=== PATIENT | female | born 1980 | race Caucasian/White ===

== ENCOUNTER → 2020-07-14 07:33 | Outpatient (CLI) | payer OTHER, SELFPAY ==
--- NOTE | ~2020-07-14 | XR_ITS ---
EXAMINATION: XR ribs BI 3V w CXR 2V EXAM DATE: 07/14/2020 08:23 INDICATION: Left, mid to lower posterior rib pain intermittently for 8 years. Pain started during cou gh episode. TECHNIQUE: Frontal projection of the upper left ribs, frontal projection of the lower left ribs, obli que projection of the left ribs. Frontal projection of the upper right ribs, frontal projection of t he lower right ribs, oblique projection of the right ribs, frontal and lateral chest x-ray(s) for int erpretation. There is no prior study for comparison. FINDINGS: There are no osteoblastic or osteolytic lesions identified. There are no displaced acute ri b fractures identified. No confluent consolidation, pneumothorax or pleural effusion suspected. No co nfluent consolidation, pneumothorax or pleural effusion suspected. Cardiomediastinal silhouette is no rmal. IMPRESSION: Unremarkable rib, chest x-ray examination. Reviewed, dictated and finalized at location A.
== END ==
PROVIDERS: PCP Family Medicine; Visit Provider Nurse Practitioner Family
DX: M54.9 Dorsalgia, unspecified (principal); R07.81 Pleurodynia
CPT/HCPCS: 71046; 71110

== ENCOUNTER 2020-07-20 07:02 | Outpatient (CLI) | payer OTHER, SELFPAY ==
--- NOTE | ~2020-07-20 | XR_ITS ---
EXAMINATION: XR thoracic spine min 4V EXAM DATE: 07/20/2020 07:23 INDICATION: Dorsalgia. TECHNIQUE: Frontal and lateral projections of the thoracic spine as well as lateral swimmers projecti on of the upper thoracic spine for interpretation. Bilateral oblique projections of the thoracic spin e. There is no prior study for comparison. FINDINGS: Minimal mid and lower thoracic disc disease. Vertebral body heights are well-maintained. N o endplate erosive change. Minimal mid thoracic levocurvature. Paraspinal soft tissue is unremarkable . IMPRESSION: Minimal thoracic spondylosis and curvature. Reviewed, dictated and finalized at location B.
== END 2020-07-20 07:03 | disposition home or self-care (01) ==
LOC: ANHIMG 07:04
PROVIDERS: PCP Family Medicine; Visit Provider Nurse Practitioner Family
DX: M47.894 Other spondylosis, thoracic region (principal)
CPT/HCPCS: 72074

== ENCOUNTER 2020-09-09 15:00 | Outpatient (RCR) | payer OTHER, SELFPAY ==
--- NOTE | 2020-08-04 16:01 | PTOPEVAL ---
PHYSICAL THERAPY EVALUATION AND PLAN OF CARE 08-04-2020 Thank you for referring Monalisa Ceron to [facility].? She is scheduled to be seen for therapy? 1 x/week for 5 weeks. Please review, sign, date and return this plan of care IDANIA. I agree with and certify that the following plan of care is medically necessary. Referring Physician Date Attending Provider: John Solorzano MD *PT Outpatient Evaluation Document 08/04/20 14:50 [facility] (Rec: 08/04/20 16:01 MADISON [email or web address]) Outpatient Past Medical History Past Medical History Source of Past Medical History Patient Neurological History Hx Neurological Disorders No Significant History Cardiovascular History Hx Other Cardiac Disorders Yes: history of heart skipping beats Respiratory History Hx Respiratory Disorders No Significant History Gastrointestinal History Hx Appendectomy Yes: March 2020 Genitourinary History Hx Genitourinary Disorders No Significant History Musculoskeletal History Hx Back Pain Yes: 9 yr history- since -bent forward& coughed-pop pain Hx Other Musculoskeletal Disorders Yes: neck pain few yr ago- went to chiropractor for Endocrine History Hx Endocrine Disorders No Significant History HEENT History Hx HEENT Disorders No Significant History Evaluation Information Problem Diagnosis back pain Onset May Subjective Information 12 year old son, tried to pick Query Text:As Reported By Patient/ her up, back seized up and Family pain since then- some better then would get worse; when standing, turned/twisted back and onset instant pain few weeks ago; in the past, was back was always better in few days Diagnostic Tests X-Rays For This Problem Yes: thoracic spine:min spondylosis and curvature Previous Treatments Previous Treatments For This Problem no previous PT for back pain Prior Level of Function Activity Level (Last 3 Months) 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
--- NOTE | 2020-08-25 18:04 | PCPTNOTE ---
Patient did not show up for scheduled appointment this date. Called and left voicemail reminding Pt of upcoming appointment on 09/01/2020.
--- NOTE | 2020-09-09 15:22 | PTOPEVAL ---
PHYSICAL THERAPY DISCHARGE 09-09-2020 Refer to the clinical summary below. The PT goals were achieved, therefore, Mrs. Ceron will be discharged from PT at this time. Thank you for referring Monalisa Ceron to [facility].? Please review, sign, date and return this discharge IDANIA. I agree with and certify that the following plan of care is medically necessary. Referring Physician Date Attending Provider: John Solorzano MD *PT Outpatient discharge Document 09/09/20 14:59 MADISON (Rec: 09/09/20 15:22 MADISON [id number]) Subjective Information Monalisa reports: doing better- Query Text:As Reported By Patient/ have not had pain in few week; Family no issues with falling asleep; some tightness in neck, but exercises work it out; doing exercises and they help; agree to discharge from PT services and continue with exercises; Pain Assessment Timing of Pain Assessment Timing of Pain Assessment Assessment Self Report Self Report Pain Level 0 Pain Score Pain Score 0: Self Report Cervical and Lumbar ROM Lumbar ROM Lumbar Comments standing trunk rotation to R no increase pain 3reps; standing and reaching up R and L UE no pain Upper Extremity Muscle Strength Testing General Upper Extremity Strength Gross Upper Extremity Strength Comments prone scapular adduction with R and L UE: at side, 90' and overhead x 20 reps each; standing: shoulder abduction/ wall angels x 20 reps supine stretch over exercise ball:thoracic and pec stretch; sit on ball: march, arm/leg lift and posture/stabilization x 10 reps each; stretch with lateral trunk R/L and rotation trunk R/L; few reminders for posture and scapular stabilization with exercise Posture Posture Standing Position Posture Evaluation View Posterior Head/C-Spine Posture Neutral Position Thorax Posture Neutral Shoulder Posture Neutral Arm Posture (L) Neutral,(R) Neutral Palpation Assessment Palpation Palpation no tenderness with palpation over R and L thoracic or cervical areas; Rehab Teaching
== END 2020-09-10 09:32 | disposition home or self-care (01) ==
LOC: ANHPT 15:00
PROVIDERS: PCP Family Medicine; Visit Provider Family Medicine
DX: M54.9 Dorsalgia, unspecified (principal)
CPT/HCPCS: 97035; 97110; 97140; 97161

== ENCOUNTER 2024-06-04 09:20 | Emergency (ER) | payer OTHER, SELFPAY ==
[2024-06-04 09:32] VITALS: BP 153/107; PULSE 85; RESP 16; TEMP 36.8; O2SAT 97
--- NOTE | 2024-06-04 09:49 | ED.DENTAL ---
HPI - Dental/Oral General Chief complaint: Dental/Oral Stated complaint: Dental Pain Time Seen by Provider: 06/04/24 09:23 Source: patient Mode of arrival: ambulatory Limitations: no limitations History of Present Illness HPI Narrative: Monalisa is a 44-year-old female patient presenting to the clinic today with complaints right upper dental abscess that started approximately 3 days ago. She reports is increase in pain. Has been taking Tylenol/Motrin/in Orajel. Blood pressure is elevated in the clinic today. No history of high blood pressure. Patient reports her pain is 8/10 currently. Related Data Home Medications Medication Instructions Recorded Confirmed meloxicam submicronized 10 mg 10 mg PO DAILY 01/08/23 06/04/24 capsule Allergies Allergy/AdvReac Type Severity Reaction Status Date / Time No Known Allergies Allergy Verified 06/04/24 09:24 Review of Systems Review of Systems: Pertinent positives per HPI. Patient denies any fever, chills, rash, headache, visual changes, dizziness, cough, runny nose, sore throat, shortness of breath, chest pain, palpitations, nausea, vomiting, diarrhea, constipation, abdominal pain, or any urinary issues. [facility] Past Medical History Medical History BMI 28.0-28.9,adult BMI 29.0-29.9,adult History of appendicitis Screening, lipid Skipped heart beats Well adult exam Family History Family History Father Hypertension Mother Osteopenia Sibling Rheumatoid arthritis Social History Social History Smoking status: Never smoker Second hand tobacco smoke exposure: No Alcohol intake: current Substance use: never Substance use type: does not use Lack of Transportation: No Lack of Food: Never True Current Housing: I Have Housing Concerned About Future Housing: No Difficulty Paying Gas/Electric Bills: No Difficulty Paying for Meds: No Currently Unemployed: No Education: Master's Degree or Higher Living arrangements: with family Occupation/Education: occupation Additional occupation/education comments: [employer] Gender identity (if verbalized by the patient): Female Comments At the time of my signature, I reviewed and agree with the nursing past medical, surgical, social, and family history. There is no relevant family history pertinent to the patient complaint. Exam Narrative: General: Well-developed, well nourished, in no apparent distress Head: Normocephalic, atraumatic Eyes: Pupils equally round and reactive to light bilaterally, EOM intact, sclera and conjunctive clear, no discharge, lids normal Ears: TMs intact and clear, ear canals clear, no drainage, grossly hearing normal. Nose: Nares patent, no discharge, no inflammation, no sinus tenderness. Mouth: Oropharynx without lesions or masses, poor dentition, MMM. Gum swelling with mild fluctuant abscess to the right upper heart palate and around the gums, tender to palpation over teeth number 2 and 3 Neck: Supple, trachea midline, no enlargement of anterior or posterior cervical nodes, no thyroid masses or goiter palpable. Cardio: Regular rate and rhythm, s1 and s2 normal, no murmur appreciated. Resp: Clear to auscultation bilaterally anteriorly and posteriorly, no rhonchi, rales, wheezing or rubs Course Course Emergency Course: Portions of this record may have been created with voice recognition software. Level of Care: Express Care Visit Vital Signs Vital signs: Vital Signs Temperature 36.8 C 06/04/24 09:32 Pulse Rate 85 06/04/24 09:32 Respiratory Rate 16 06/04/24 09:32 Blood Pressure 153/107 H 06/04/24 09:32 Pulse Oximetry 97 06/04/24 09:32 Oxygen Delivery Room Air 06/04/24 09:32 Temperature 36.8 C 06/04/24 09:32 Pulse Rate 85 06/04/24 09:32
== END 2024-06-04 09:55 | disposition home or self-care (01) ==
PROVIDERS: Emergency Provider Nurse Practitioner Family; PCP Family Medicine
DX: K04.7 Periapical abscess without sinus (principal)
CPT/HCPCS: 99213; G0463

== ENCOUNTER 2025-04-14 03:19 | Day surgery (SDC) | payer OTHER, SELFPAY ==
[2025-04-01 11:36] VITALS: BMI 29.4
--- OUTSIDE RECORDS SUMMARY | 2025-04-14 03:22 | XMS_ITS | Encounter Summary ---
Author Organization [employer] [facility] Address 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
--- OUTSIDE RECORDS SUMMARY | 2025-04-14 03:22 | XMS_ITS | Clinical Summary ---
Author Organization [facility] Address [address] [place] [phone] Phone Care Team Providers Care Broadcast Field Supervisor Name Role Phone Unavailable Primary Care Provider Unavailabl e Allergies No known active allergies Medications PNV CMB#21/IRON/FOLI C ACID ( COMPLETE ORAL) Take by mouth. Active Active Problems Problem Noted Date Diagnosed Date Labor, gbs-, AB+, arom 0445 01/10/2014 11.2 08/30/2011 Resolved Problems Problem Noted Date Diagnosed Date Resolved Date eil(pit), [id number], AB+, gbs- 08/30/2011 08/30/2011 Immunizations Immunization Administration Dates Next Due (ADACEL/BOOSTRIX)(10 YR UP) TDAP VACCINE, 0.5ML, IM 01/12/2014,08/31/2011 Influenza Vaccine Split 3+ Yrs PF IM 08/31/2011 Influenza Vaccine Split PF ID 01/10/2014 Family History Medical History Relation Name Comments Healthy Father Healthy Mother Healthy Son Relation Name Status Comments Father Alive Mother Alive Son Alive Social History Tobacco Use Types Packs/Day Years Used Date Smoking Tobacco: Never Smokeless Tobacco: Never Alcohol Use Standard Drinks/Week Comments No 0 (1 standard drink = 0.6 oz pur e alcohol) Comments Unknown Sex and Gender Information Value Date Recorded Sex Assigned at Not on file 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 Gender Identity Not on file Sexual Orientation Not on file Last Filed Vital Signs Vital Sign Reading Time Taken Comments Blood Pressure 110/70 01/12/2014 9:00 AM CDT Pulse 76 01/12/2014 9:00 AM CDT Temperature 36.9 C (98.4 F) 01/12/2014 9:00 AM CDT Respiratory Rate 18 01/12/2014 9:00 AM CDT Oxygen Saturation 99% 01/10/2014 4:33 AM CDT Inhaled Oxygen Concentration - - Weight 72.1 kg (159 lb) 01/10/2014 2:39 AM CDT Height 157.5 cm (5' 2) 01/10/2014 2:39 AM CDT Body Mass Index 29.08 01/10/2014 2:39 AM CDT Plan of Treatment Health Maintenance Due Date Last Done Comments HEPATITIS B VACCINES (1 of 3 - 19+ 3-dose series) 1998 HPV/Cotest (21-29) 2000 CERVICAL CANCER SCREENING 2009 HPV/Cotest (30-65) 2009 PAP SMEAR 2009 BREAST CANCER SCREENING 2019 DTAP/TDAP/TD VACCINES (3 - T d or Tdap) 01/13/2024 01/12/2014, 08/31/2011 COLORECTAL SCREENING 2024 Colorectal Cancer Screening 2024 FIT-DNA Q 3 years 2024 FIT/FOBT Q 1 year 2024 Flex Sig/CT Colonography Q 5 years 2024 INFLUENZA VACCINE (#1) 2024 4, 08/31/2011 HPV VACCINES Aged Out No longer eligi ble based on patient's age to complete this topic Advance Directives For more information, please contact: [phone] * Full Code (Latest Code Status on File) Date Activated Date Inactivated Comments 01/10/2014 10:06 AM 01/12/2014 12:47 PM * Full Code Date Activated Date Inactivated Comments 01/10/2014 3:17 AM 01/10/2014 8:38 AM * Full Code Date Activated Date Inactivated Comments 08/30/2011 3:31 PM 09/01/2011 12:13 PM * Full Code Date Activated Date Inactivated Comments 08/30/2011 12:49 AM 08/30/2011 3:31 PM * Full Code Date Activated Date Inactivated Comments 08/30/2011 12:48 AM 08/30/2011 12:49 AM
--- OUTSIDE RECORDS SUMMARY | 2025-04-14 03:22 | XMS_ITS | Data Portability ---
Author Organization [facility] Address [address] [place] [address] [place] [address] Care Team Providers Care Supervisor Endless Track Vehicle Name Role Phone ED CORNELL Primary Care Provider [phone] Assessment No assessment recorded. Plan of Treatment Reminders Order Date Submit Date Provider Last Modified By Organization Details Last Modified Time Details Appointments None recorded. Lab test, urine 2021 022 [email or web address] [facility], [address], [place], [address], 15:27:36 Referral None recorded. Procedures None recorded. Surgeries hysteroscop y, with endometrial ablation (SURG) 2021 022 [email or web address] Kevin Cochran MD, [address], [place], [address], 11:06:10 Imaging US, pelvis 2021 022 [email or web address] [facility], [address], [place], [address], 21:49:50 US, transvagina l 2021 022 [email or web address] [facility], [address], [place], [address], 21:49:50 Medication Orders Pembina 10 mg-325 mg tablet 2021 022 [email or web address] [id number], [address], [place], [id number], 10:42:34 Xanax 0.5 mg tablet 2021 [email or web address] [id number], [address], [place], [phone], 10:42:41 Zofran 8 mg tablet 2021 [email or web address] [facility], [address], [place], [id number], 10:42:39 Patient TargetsNo targets recorded. Patient InstructionsNo instructions recorded. Reason for Referral None Reported. Results Created Date Observation Date Name Description Value Unit Range Abnormal Flag Note LastModifiedBy Organization Detail LastModifiedTime 07/12/20 22 07/12/2022 SURGI MARYLU PATHO LOGY surgical pathology SEE RESULT S BELOW CASE REPOR T: Surgi marylu Patho logy Repor t Case: [id number] Autho akanksha moreno Provi alma: Lara Cochran MD Colle cted: 07/12 1815 Order ing Locat ion: [place] [facility] Recei mai: 07/13 0141 Patho logis t: Tristin Dejesus MD Speci men: Cervi x, Cervi marylu biops y FINAL DIAGN OSIS: Cervi x, biops y: -Ecto cervi marylu tissu e with no dyspl thomas. Elect lupe mcleod by Tristin Dejesus MD on 2021 at 2:24 PM ----- ----- ----- ----- ----- ----- ----- ----- ----- ----- ----- ----- ----- ----- ----- ----- ----- ---- CLINI MARYLU INFOR MATIO N: N88.9 MICRO SCOPI C DESCR IPTIO N: A micro scopi c exami natio n was perfo rmed. GROSS DESCR IPTIO N: A. Cervi x. The speci men is label ed with the patie nt's name, demog raphi cs and cervi marylu BX. Recei mai in forma reyna is a 0.7 cm fragm ent of white -vogel tissu e. The entir e speci men is submi tted in one casse tte. Gross ed by Dianna Khan on Not Available [facility] [address] [place], [address], 07/13/2022 15:26:31 07/12/20 22 07/12/2022 pregn varun test, urine HCG negati ve Not Available [facility] [address], [place], [address], 07/12/2022 15:27:22 05/23/20 22 05/23/2022 US, pelvi s No observ ation record ed. [email or web address] [facility] [address], [place], [address], 05/23/2022 10:56:49 05/23/20 22 05/23/2022 US, trans vagin al No observ ation record ed. [email or web address] [facility] [address], [place], [address], 05/23/2022 10:56:59 05/23/20 22 05/23/2022 US, pelvi s No observ ation record ed. ana [address], [facility], [place], [address], 05/25/2022 14:13:08 07/20/20 22 07/20/2022 US, pelvi s No observ ation record ed. [email or web address] [facility] [address], [place], [address], 07/20/2022 18:01:20 07/20/20 22 07/20/2022 US, trans vagin al No observ ation record ed. [email or web address] [facility] [address], [place], [address], 07/20/2022 18:01:28 07/20/20 22 07/20/2022 US, pelvi s No observ ation record ed. [email or web address] [address], [place], [address], 07/20/2022 20:52:38 Result Notes None recorded. Problems Name Problem SNOMED Code Status Onset Date Resolution Date Notes Provider Name and Address Organization Details Recorded Time Menorrhagia 554551762 Active 2021 Kevin Cochran MD [address], [place], [address], [facility] 2 13:34:32 Cyst of ovary 26303835 Active 2021 Kevin Cochran MD [address], [place], [address], [facility] 2 13:34:34 Lesion of cervix 108930319 Active 2021 Kevin Cochran MD [address], [place], [address], [facility] 2 13:34:36 Mixed anxiety and depressive disorder 571157543 Active 2021 Kevin Cochran MD [address], [place], [address], [facility] 13:34:40 Problem Notes None recorded. Procedures Surgical History Date Name Laterality Status Provider Name and Address Organization Details Recorded Time 07/16/20 23 I&D completed Kevin Cochran MD [address], [place], [address], [facility] 07/16/2023 11:30:45 07/12/20 22 Endometrial Ablation with Hysteroscopy completed Kevin Cochran MD [address], [place], [address], [facility] 07/15/2022 15:03:19 05/17/20 22 Date of Last Pap Smear completed Harika Edmonds [facility] 05/29/2022 12:40:35 05/04/20 21 I&D completed Mercedes Perez CNM [address], [place], [address], [facility] 05/04/2021 14:36:07 02/18/20 21 I&D completed Shakira Tan [facility] 02/17/2021 16:52:36 10/29/19 20 Appendectomy completed Maggie Read [facility] 05/04/2021 14:24:08 Imaging Results None recorded. Procedure Notes None recorded. Medical Equipment None Reported. Allergies No known drug allergies Medications Name Sig Start Date Stop Date Status Note LastModified by Organization Details LastModified Time tizanidine 2 mg tablet TAKE 1 TABLET BY MOUTH EVERY NIGHT AT BEDTIME NEEDED FOR MUSCLE SPASMS 05/17 completed Not Available Not Available Not Available hydrocodone 5 mg-acetamin ophen 325 mg tablet TK 1 TO 2 TS PO Q 4 H PRN P 01/31 completed Not Available Not Available Not Available ondansetron HCl 8 mg tablet TAKE 1 TABLET BY MOUTH 2 HOURS BEFORE THE PROCEDURE 07/16 completed Not Available Not Available Not Available prednisone 5 mg tablet TAKE 1-3 TABLETS BY MOUTH EVERY DAY FOR IMMEDIATE ARTHRITIS CONTROL. USE LOWEST DOSE NEEDED AND STOP WHEN BETTER 05/17 completed Not Available Not Available Not Available sulfamethox azole 800 mg-trimetho prim 160 mg tablet TAKE 1 TABLET BY MOUTH EVERY 12 HOURS 02/17 completed Not Available Not Available Not Available hydrocodone 10 mg-acetamin ophen 325 mg tablet Take 1 tablet 2 hours before the procedure . 07/16 completed Not Available Not Available Not Available tramadol 50 mg tablet TAKE 1 TABLET BY MOUTH FOUR TIMES DAILY WITH OTC TYLENOL NEEDED FOR PAIN 05/17 completed Not Available Not Available Not Available meloxicam 7.5 mg tablet TAKE 2 TABLETS BY MOUTH FOR 1 DAY THEN TAKE 1 TABLET BY MOUTH DAILY FOR PAIN active Not Available Not Available No t Available alprazolam 0.5 mg tablet TAKE ONE TABLET BY MOUTH 2 HOURS BEFORE THE PROCEDURE 07/16 completed Not Available Not Available Not Available Vitamin D2 1,250 mcg (50,000 unit) capsule Take 1 capsule every week by oral route. 05/17 completed Not Available Not Available Not Available escitalopra m 10 mg tablet TAKE 1 TABLET BY MOUTH EVERY DAY active Not Available Not Available No t Available Vitamin D3 125 mcg (5,000 unit) tablet Take 1 tablet every day by oral route. active Not Available Not Available No t Available Slynd 4 mg (28) tablet TAKE 1 TABLET BY MOUTH EVERY DAY 05/17 completed Not Available Not Available Not Available Vitals Date Recorded Body height Body mass index (BMI) Body weight Systolic blood pressure Diastolic blood pressure Provider Name and Address Organization Details Last Updated DateTime 06/21/2022 157.48 cm 28.5 kg/m2 05334.41 g 93 mm[Hg] 71 mm[Hg] [facility] 2 18:30:56 Date Recorded Body height Body mass index (BMI) Body weight Systolic blood pressure Diastolic blood pressure Provider Name and Address Organization Details Last Updated DateTime 07/12/2022 157.48 cm 28.2 kg/m2 97232.22 g 118 mm[Hg] 80 mm[Hg] [facility] 2 15:00:03 Date Recorded Body height Body mass index (BMI) Body weight Systolic blood pressure Diastolic blood pressure Systolic blood pressure Diastolic blood pressure Provider Name and Address Organization Details Last Updated DateTime 3 157.48 cm 29.3 kg/m2 46170.7 8 g 153 mm[Hg] 101 mm[Hg] 140 mm[Hg] 100 mm[Hg] Harika Edmonds [facility] 3 11:30:48 Date Recorded Body height Body mass index (BMI) Body weight Systolic blood pressure Diastolic blood pressure Systolic blood pressure Diastolic blood pressure Provider Name and Address Organization Details Last Updated DateTime 2 157.48 cm 28.5 kg/m2 34353.4 1 g 142 mm[Hg] 100 mm[Hg] 153 mm[Hg] 90 mm[Hg] Harika Edmonds [facility] 2 17:39:48 Social History Question Answer Notes LastModified by Organizat ion Details LastModified Time Tobacco Smoking Status Never Smoker Mariana Up [email or web address], [facility] 07/12/2022 14:36:33 Do You Have An Advance Directive? No [email or web address] Information n ot available 01/31/2021 How Many Years Have You Consumed Alcohol? 20 [email or web address] Information not available 01/31/2021 Are You Blind Or Do You Have Difficulty Seeing? No [email or web address] Information n ot available 01/31/2021 How Much Tobacco Do You Chew? None [email or web address] Information not available 01/31/2021 In The 14 Days Before Symptom Onset, Have You Had Close Contact With A Laboratory-confirm ed COVID-19 While That Case Was Ill? No [email or web address] Information n ot available 01/31/2021 In The 14 Days Before Symptom Onset, Have You Had Close Contact With A Person Who Is Under Investigation For COVID-19 While That Person Was Ill? No [email or web address] Information not available 01/31/2021 Have You Been To An Area Known To Be High Risk For COVID-19? No [email or web address] Information not available 01/31/2021 Are You Deaf Or Do You Have Serious Difficulty Hearing? No [email or web address] Information not available 01/31/2021 What Type Of Diet Are You Following? REGULAR [email or web address] Information n ot available 01/31/2021 What Is The Highest Grade Or Level Of School You Have Completed Or The Highest Degree You Have Received? [id number] [email or web address] Information not available 01/31/2021 Are There Any Guns Present In Your Home? Yes [email or web address] Information not available 01/31/2021 Do You Use Protection During Sex? No [email or web address] Information not available 01/31/2021 Do You Use Your Seat Belt Or Car Seat Routinely? Yes Information not available 01/31/2021 Do You Have Smoke And Carbon Monoxide Detectors In Your Home? Yes [email or web address] Information not available 01/31/2021 How Much Tobacco Do You Smoke? No [email or web address] Information not available 01/31/2021 Do You Use Sunscreen Routinely? Yes [email or web address] Information not available 01/31/2021 Have You Used IV Drugs? No [email or web address] Information not available 01/31/2021 Do You Have Difficulty Walking Or Climbing Stairs? No [email or web address] Information not available 07/12/2022 Sex: Unknown Functional Status Question Answer Note LastModified by Organizat ion Details LastModified Time Do you use any illicit or recreational drugs? No [email or web address] Information not available 01/31/2021 What is your level of alcohol consumption? Occasional [email or web address] Information not available 01/31/2021 Are you able to walk? YESWOREST [email or web address] Information not available 01/31/2021 Are you able to care for yourself? 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 No [email or web address] Information not available 07/12/2022 What is your exercise level? Moderate [email or web address] Information not available 01/31/2021 Mental Status Question Answer Note LastModified by Organization D etails LastModified Time Do you feel stressed (tense, restless, nervous, or anxious, or unable to sleep at night)? [id number] [email or web address] Information not available 01/31/2021 Family History Relationship Description Onset Age of this Age Resolved Age Notes LastModified by Organization Details LastModified Time Father Hypertensive disorder [email or web address] Not available 2021 15:00:17 Father Hypertensive disorder [email or web address] Not available 2021 15:00:17 Maternal Grandfather Heart disease [email or web address] Not available 09/14/ 2022 15:00:17 Maternal Grandfather Heart disease [email or web address] Not available 2021 15:00:17 Medical History Condition Response Other N Blood Transfusion N Dermatologic Disorders N Gestational Diabetes N Anxiety Disorder N Autoimmune disease N Arthritis N Polyps N Infertility N Acid Reflux (GERD) N Cancer N Varicosities N Stroke N Neurologic/Epilepsy N Fibromyalgia N Headaches N Kidney Disease N Heart Problems N Kidney or Bladder Problems N Eating Disorder N Art (IVF or FET) N Hepatitis/Liver Disease N No Past Medical History N Urinary Tract Infection N Asthma N Trauma/Violence N Thrombophilias N Allergies (Food, seasonal, environmental ) N Breast Cancer N Drug/Latex Allergies/Reactions N Lung Disease N Defects or Inherited Disease N Breast Problem N Hematologic disorders N Anesthesia Complications N History of STI N Deep Vein Thrombosis N Polycystic ovary syndrome N History of abnormal pap N Endometriosis N High Cholesterol N Thyroid Problems N GI Problems N Anemia N Psychiatric Illness N Ovarian Cancer N Diabetes N Pulmonary (TB, Asthma) N Eczema N Abuse/Domestic Violence N Depression/ depression N Heart Disease N Pre-Eclampsia N Hypertension N Osteoporosis N Gynecological History Statement/Question Response Abnormal Pap N Date of Last Mammogram Flow Heavy Date of LMP 05/05/2022 On BCP's at Conception? N N Was last menstrual period normal N STIs/STDs N HPV Vaccine N Duration of Flow (days) 4 Current Control Method BCPs Age at First Child 28 Frequency of Cycle (Q days) 27 Sexually Active? Y Age of first menstrual cycle 12 Date of Last Pap Smear 05/17/2022 Sexual Problems? N LMP Approximate N Obstetrics History GPAL:G 3 P 3 0 0 3 Type Value Full Term 3 Living 3 Total 3 Past Encounters Encounter ID Performer Location Encounter Start Date Encounter Closed Date Diagnosis/Indication Diagnosis SNOMED-CT Code Diagnosis ICD10 Code Diagnosis Note [id number] Shakira Tan CNM [facility] [address] [address] 01/31/2021 09:18:49 01/31/2021 10:43:02 Cyst of vulva 12163875 N90.7 Warm compress 3-4x daily. Bactrim x 7 days. RTC in 1-2 weeks to evaluate. [id number] Shakira Tan CNM [facility] [address] [address] 02/17/2021 16:00:34 02/18/2021 16:02:35 Cyst of vulva 14195934 N90.7 I&D aftercare instructio ns. If any pain, redness, fever, s/s of infection, or concerns she will call for follow up. If resolution of symptoms will follow up at [id number] [facility] [address],[place] [address] 03/14/2021 16:41:21 2021 21:38:19 Cyst of vulva 32024462 N90.7 Site completely healed. Pt will let us know if any return of symptoms. [id number] [facility] [address],[place] [address] 03/31/2021 09:50:38 04/03/2021 23:01:25 Gynecologic examination 50141277 Z01.419 Suggested Calcium with Vitamin D 1200-1500m g daily. Patient advised to get an annual flu shot in the fall and she could obtain at [facility] or [facility]. Also to obtain TDap vaccinatio n if you have not had one in the last 10 years. Recommend yearly mammograms . Encouraged monthly self breast exams. Encourage safe sexual practices, to use condoms and limit partners if not already in a monogamous relationsh ip. Engage in daily exercise of low impact aerobic exercise 45-60 minutes 4-5 times weekly. Avoid tobacco and illicit drugs as well as using moderation with alcohol intake less than 1-2 8 oz beverages daily. This lifestyle behavior pattern will lead to less health conditions and longer life span. If BMI greater than 25 weight watchers or dietary consult advised. All questions have been answered. Patient appears to understand informatio n, but if you have any questions please call or respond to this email. Dysmenorrhea 773290949 N 94.6 Discussed options that could help with cramping and possibly decrease flow. Pt is not a great candidate for estrogen containing control. Discussed the use of slynd and pt would like to try. RTC in [id number] [facility] [address],[facility] [place] [address] 05/04/2021 13:58:45 05/04/2021 15:07:20 Lesion of vulva 651657135 N90.89 [id number] Stephanie HumblestephanyTAYLOR [facility] [address] [address] 05/17/2022 09:16:49 05/17/2022 14:23:50 Screening for malignant neoplasm of breast 550195043 Z12.39 Gynecologi c examination 40109069 Z01.419 Take Calcium with Vitamin D 1200mg daily if not receiving in daily diet. It is strongly advised to have an annual flu shot and up can obtain at most pharmacies . If you have not had a TDap shot in the last 10 years you should obtain one as well. Discussed with patient & provided with informatio n regarding Gardisil vaccine to prevent the 4 strains for HPV that cause cervical cancer if under age 26. Encourage safe sexual practices, to use condoms and limit partners if not already in a monogamous relationsh ip. Do monthly self breast exams. Have mammogram yearly or every other year depending on family history. BRCA testing is now available for patients with strong genetic history of female cancer. If interested contact the office. Engage in daily exercise of low impact aerobic exercise 45-60 minutes 4-5 times weekly. Avoid tobacco and illicit drugs as well as using moderation with alcohol intake less than 1-2 8 oz beverages daily. This lifestyle behavior pattern will lead to less health conditions and longer life span. If BMI greater than 25 weight watchers or dietary consult advised. Patient received above instructio ns, and questions have been answered. If you have any questions please call or respond to this email. Patient was made aware of the patient portal and may obtain a paper copy of today's plan if desired.WW EMedical hx : MTHFR, arthritisP eriods have become heavier over the last 2-3 years. Lasting 5 days, changing tampons every 1 hour or faster on days 1-2. 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 We discussed IUD, not interested at this time. Would like possible surgical management .We agreed to labs and pelvic u/s for further evaluation . F/u u/s appointmen t with Dr. Cochran.Jose moreno negative mood changes, crying spells 1-3 x per week, feeling overwhelme d. No OLESYA. We discussed options of medication therapy, she would like to hold off on this for now. Encouraged therapy, handout given to patient on local counseling options. Can call the office if she changes her mind and would like to trial zoloft.To go to the ED with any OLESYA, patient agreesOn cervical exam, at 12 o'clock, small lesion noted anterior to the cervical opening. Possible polyp vs nabothian cyst vs ?. Will have MD evaluate cervix at f/u appointmen t for further evaluation .Pap done todaySTI testing declinedMa mmogram order givenSched ule annual visit with PCP encouraged RTC for u/s and MD consult Time spent in visit is a total of 30 mins with at least 50% of visit consisting of counseling and review of plan of care. Abnormal u terine bleeding 4923034418 9100 N93.9 Lesion of cervix 4535607 01 N88.9 [id number] Kevin Cochran MD [facility] [address],[facility] [place] [address] 05/23/2022 09:52:49 05/23/2022 10:41:36 Menorrhagia 870975343 N92.0 [id number] Kevin Cochran MD [facility] [address] [address] 05/29/2022 12:04:05 05/29/2022 13:40:48 Mixed anxiety and depressive disorder 162364397 F41.8 Menorrhagia 410604890 N9 2.0 This patient is a 42-year-ol d female presents for heavy vaginal bleeding. She has longstandi ng very heavy bleeding. Her menses are regular. However, they require double protection . Patient has accidents, getting blood on her bedding and clothing. Is affected work. She changes a pad or tampon every hour. She leaks blood around the pad and tampon. This bleeding has a profound impact on her quality of life and her activities of daily living. we discussed treatment options. We agreed to perform endometria l ablation. We will move forward with getting that approved and scheduled. patient and I discussed ovarian cyst. We spent time looking at images. We talked about the etiology, natural history, treatment of ovarian cyst. Patient reports symptoms of depression . She reports sadness and crying tears feelings of worthlessn ess. She has difficulty concentrat ing. She is irritable. This is been going on for close to a year. She denies any problems with her diet or sleep. She denies any thoughts of suicide or any suicidal plan. She is starting with a counselor. We agreed to treat her symptoms with Lexapro, 10 mg. we spent more than 40 minutes face-to-fa ce. More than 50% was counseling . Cyst of ovary 52326321 N 83.209 Lesion of cervix 3156780 01 N88.9 [id number] Kevin Cochran MD [facility] [address] [address] 06/21/2022 18:22:27 06/22/2022 15:02:11 Menorrhagia 429534348 N92.0 This patient is a 42-year-ol d female who presents for follow-up for mood concerns. She was treated with Lexapro. She is doing much better. She received 10 mg of Lexapro daily for the last month and has noticed a significan t improvemen t in her mood. She is satisfied at this time we can follow-up on her mood in 3 months. She also has severe menorrhagi a. We agreed to move forward with endometria l ablation in the office. I did not get that scheduled. The order was submitted today. We also reviewed her ultrasound results. There is a complex ovarian cyst that needs to be followed up in about 6 weeks. That will be scheduled today as well. We will follow-up on that after the ultrasound . We spent over 20 minutes face-to-fa ce. More than 50% was counseling . She will be seen next time at the ablation. Preoperative state [id number] Z78.9 [id number] Kevin Cochran MD [facility] [address] [address] 07/12/2022 14:34:28 07/17/2022 14:26:09 Screening procedure 75609151 Z13.9 Menorrhagia 017490461 N9 2.0 ablation was performed without complicati on. She tolerated well. [id number] Kevin Cochran MD [facility] [address] [address] 07/20/2022 17:17:21 07/21/2022 14:46:43 Cyst of right ovary 9857291717 9068841 N83.291 [id number] Kevin Cochran MD [facility] [address] [address] 07/26/2022 17:32:20 07/26/2022 18:15:34 Cyst of ovary 82214254 N83.209 Menorrhagia 053586010 N9 2.0 This patient is a 42-year-ol d female presents for follow-up on ultrasound and menorrhagi a. She recently underwent endometria l ablation. She is recovering normally from that. She does have some watery vaginal discharge still. It has been almost 2 weeks. She had an ovarian cyst previously . Ultrasound was performed recently to follow the ovarian cyst. The cyst has resolved. We spent 20 minutes face-to-fa ce. More than 50% was counseling . We talked about 2 concerns. The ovarian cyst and the menorrhagi a. [id number] Kevin Cochran MD [facility] [address] [address] 07/16/2023 10:32:23 07/16/2023 11:36:32 Cyst of vulva 40635996 N90.7 incision and drainage of vulvar cyst was performed. She tolerated well. Health Concerns Section Related Observation LastModified by Organization Detai ls LastModified Time None Recorded Concern Status LastModified by Organization Details LastModified Time None Recorded Advance Directives Directive N: Payers Insurance Date Sequence Insurance Name Policy Number Policy Quesada Covered Member ID Quesada Member ID Guarantor Name 07/13/2023 1 [facility] [id number] Monalisa Ceron [id number] Monalisa Ceron Notes Date Note Type Note Provider Name and Address Organization Details Recorded Time 06/21/2022 text/html This patient is a 42-year-old female who presents for follow-up for mood concerns. She was treated with Lexapro. She is doing much better. She received 10 mg of Lexapro daily for the last month and has noticed a significant improvement in her mood. She is satisfied at this time we can follow-up on her mood in 3 months. She also has severe menorrhagia. We agreed to move forward with endometrial ablation in the office. I did not get that scheduled. The order was submitted today. We also reviewed her ultrasound results. There is a complex ovarian cyst that needs to be followed up in about 6 weeks. That will be scheduled today as well. We will follow-up on that after the ultrasound. We spent over 20 minutes [id number]. More than 50% was counseling. She will be seen next time at the ablation. Kevin Cochran MD [address], [place], [address], [facility] 06/21/2022 21:24:49 07/12/2022 text/html 42-year-old female presents for endometrial ablation Kevin Cochran MD [address], [place], [address], [facility] 07/15/2022 15:04:29 07/26/2022 text/html This patient is a 42-year-old female presents for follow-up on ultrasound and menorrhagia. She recently underwent endometrial ablation. She is recovering normally from that. She does have some watery vaginal discharge still. It has been almost 2 weeks. She had an ovarian cyst previously. Ultrasound was performed recently to follow the ovarian cyst. The cyst has resolved. We spent 20 minutes [id number]. More than 50% was counseling. We talked about 2 concerns. The ovarian cyst and the menorrhagia. Kevin Cochran MD [address], [place], [address], [facility] 07/26/2022 18:11:06 07/16/2023 text/html 43-YEAR-OLD FEMALE WHO PRESENTS FOR INCISION AND DRAINAGE OF VULVAR CYST. Kevin Cochran MD [address], [place], [address], [facility] 07/16/2023 11:32:20 OBGyn Episode Ob Episode Information Episode Created Date Number of Fetuses Patient Bloodtype Patient rh Status Prepregnancy Weight lbs Domestic Partner Domestic Partner Phone Father Name Cook Boat Status 02/01/20 21 1 CLOSED Fetus Data First Name Last Name Admitted to NICU Weight (g) Sex Living Outcome Pediatric Complications Fetus ID Race Codes Race Delivery Type 4139.02 7 Full Term 8795 Vaginal Delivery Raj Calculation Initial Raj Date Initial Exam Date Initial Exam Provider Initial Ultrasound Date Last Menstrual Period Date Ultra Sound Weeks Gestation 0 Eighteen To Twenty Week Raj Update Ultra Sound Date Fundal Height At Umbil Quickening Date Ultra Sound Latest Weeks Gestation Final Raj Confirmed By Final Raj Confirmed Date Final Raj Date Ultra Sound Latest Days Gestation 0 0 Menstrual History Last Menstrual Date Menses Monthly On Bcp Conception Prior Menses Frequency Hcg Plus Date Menarche Onset Age Delivery Information Delivery Date Delivery Type Labor Anesthesia Weeks Gestation Incision Type Labor Labor Length Hrs Delivered By Post Complications Tubal Sterilization Discharge Date Comments 8 41 Discharge Information Feeding Method Contraceptive Method Maternal HG B and HCT Levels Ob Episode Information Episode Created Date Number of Fetuses Patient Bloodtype Patient rh Status Prepregnancy Weight lbs Domestic Partner Domestic Partner Phone Father Name Cook Boat Status 02/01/20 21 1 CLOSED Fetus Data First Name Last Name Admitted to NICU Weight (g) Sex Living Outcome Pediatric Complications Fetus ID Race Codes Race Delivery Type 3713.55 7704 Full Term 8797 Vaginal Delivery Raj Calculation Initial Raj Date Initial Exam Date Initial Exam Provider Initial Ultrasound Date Last Menstrual Period Date Ultra Sound Weeks Gestation 0 Eighteen To Twenty Week Raj Update Ultra Sound Date Fundal Height At Umbil Quickening Date Ultra Sound Latest Weeks Gestation Final Raj Confirmed By Final Raj Confirmed Date Final Raj Date Ultra Sound Latest Days Gestation 0 0 Menstrual History Last Menstrual Date Menses Monthly On Bcp Conception Prior Menses Frequency Hcg Plus Date Menarche Onset Age Delivery Information Delivery Date Delivery Type Labor Anesthesia Weeks Gestation Incision Type Labor Labor Length Hrs Delivered By Post Complications Tubal Sterilization Discharge Date Comments 4 39 Discharge Information Feeding Method Contraceptive Method Maternal HG B and HCT Levels Ob Episode Information Episode Created Date Number of Fetuses Patient Bloodtype Patient rh Status Prepregnancy Weight lbs Domestic Partner Domestic Partner Phone Father Name Cook Boat Status 02/01/20 21 1 CLOSED Fetus Data First Name Last Name Admitted to NICU Weight (g) Sex Living Outcome Pediatric Complications Fetus ID Race Codes Race Delivery Type 3628.73 6 Full Term 8796 Vaginal Delivery Raj Calculation Initial Raj Date Initial Exam Date Initial Exam Provider Initial Ultrasound Date Last Menstrual Period Date Ultra Sound Weeks Gestation 0 Eighteen To Twenty Week Raj Update Ultra Sound Date Fundal Height At Umbil Quickening Date Ultra Sound Latest Weeks Gestation Final Raj Confirmed By Final Raj Confirmed Date Final Raj Date Ultra Sound Latest Days Gestation 0 0 Menstrual History Last Menstrual Date Menses Monthly On Bcp Conception Prior Menses Frequency Hcg Plus Date Menarche Onset Age Delivery Information Delivery Date Delivery Type Labor Anesthesia Weeks Gestation Incision Type Labor Labor Length Hrs Delivered By Post Complications Tubal Sterilization Discharge Date Comments 1 40 Discharge Information Feeding Method Contraceptive Method Maternal HG B and HCT Levels
--- OUTSIDE RECORDS SUMMARY | 2025-04-14 03:22 | XMS_ITS | Clinical Summary ---
Author Organization [facility] Address [address] 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 This disclosure is being madepursuant to the Care Everywhere program and may not contain all information available regarding this patient. Last updated 18.[facility] Allergies No known active allergies Medications * Be aware that medications may not be up to date on this document. Alwaysverify current medications with the patient. albuterol HFA (PROVENTIL;VENT ALEXANDRA;PROAIR) 108 (90 Base) MCG/ACT inhaler Inhale 2 puffs by mouth every 4 hours as needed 1 Inhaler 10/24/2019 Active benzonatate (TESSALON) 200 MG capsule Take 1 capsule by mouth 3 times daily as needed for Cough 30 capsule 10/24/2019 Active Social History Tobacco Use Types Packs/Day Years Used Date Smoking Tobacco: Never Smokeless Tobacco: Never Comments Unknown Sex and Gender Information Value Date Recorded Sex Assigned at Not on file Legal Sex Female 5:12 PM CDT Gender Identity Not on file Sexual Orientation Not on file Last Filed Vital Signs Vital Sign Reading Time Taken Comments Blood Pressure 110/78 10/24/2019 12:50 PM 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 Pulse 75 10/24/2019 12:50 PM 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 Temperature 36.8 C (98.3 F) 10/24/2019 12:50 PM 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 Respiratory Rate 16 10/24/2019 12:50 PM 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 Oxygen Saturation 98% 10/24/2019 12:50 PM 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 Inhaled Oxygen Concentration - - Weight 65.8 kg (145 lb) 10/24/2019 12:50 PM 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 Height 157.5 cm (5' 2) 10/24/2019 12:50 PM 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 Body Mass Index 26.52 10/24/2019 12:50 PM 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 Plan of Treatment Health Maintenance Due Date Last Done Comments COLOGUARD (AGES 45-75) - COL ON CA SCREENING 1979 COLON MONITORING 1979 COLONOSCOPY - COLON CA SCREENING 1979 CT COLONOGRAPHY - COLON CA SCREENING 1979 Colorectal Cancer Screening 1979 FIT - COLON CA SCREENING 1979 FLEX SIG - COLON CA SCREENING 1979 MAMMOGRAM 1979 HIV SCREENING 1994 HEPATITIS C SCREENING 03/10/1997 DTAP/TDAP/TD VACCINES (1 - Tdap) 1998 HEPATITIS B VACCINE (1 of 3 - 19+ 3-dose series) 1998 SCREENING FOR DIABETES 04/01/2024 , 04/01/2021, 04/01/2021 COVID-19 VACCINE (1 - 2023-2 5 season) 2024 DEPRESSION SCREENING 10/29/2024 INFLUENZA VACCINE (Season Ended) 2025 LIPID TESTING 04/01/2026 04/01/2021 ZOSTER VACCINE (1 of 2) 2029 HIB VACCINE Aged Out No longer eligi ble based on patient's age to complete this topic HPV VACCINE Aged Out No longer eligi ble based on patient's age to complete this topic MENINGOCOCCAL (Group B) VACCINE SHARED DECISION-MAKING Aged Out No longer eligible based on patient's age to complete this topic MENINGOCOCCAL GROUPS A/C/Y/W VACCINE Aged Out No longer eligible b ased on patient's age to complete this topic PNEUMOCOCCAL VACCINE Aged Out No long er eligible based on patient's age to complete this topic Insurance Member Subscriber Plan / Payer (Ef fective 2018-Present) Name:Monalisa Ceron Relation to Subscriber:Self Name:JavedGopi gonzálesla Payer ID:[id number] ([facility]) Type:O Address: [place] [id number]
[2025-04-14 10:06] VITALS: BP 140/104; PULSE 98; RESP 18; TEMP 36.7; O2SAT 98
[2025-04-14 10:11] LABS: BEDSIDEPREGUCG Negative (Negative)
[2025-04-14] MEDS: LACTATED RINGERS 1,000 ML 150 ML IV CONT (10:14)
--- NOTE | 2025-04-14 10:14 | P.PNAN_ITS ---
Anes - Initial Pre Proc Eval Procedure: Operation Date: 04/14/25 11:30 Proposed Procedures p Screening Colonoscopy - Ronald Urrutia MD Date/Time: 04/14/25 10:14 Surgeon: Ronald Urrutia MD Pre Op Diagnosis: Screening Patient Data Age: 45 Gender: F Height: 1.57 m Weight: 72.6 kg Last Vital Signs Temp 36.7 C 04/14/25 10:06 Pulse 98 04/14/25 10:06 Resp 18 04/14/25 10:06 BP 140/104 H 04/14/25 10:06 Pulse Ox 98 04/14/25 10:06 O2 Del Method Room Air 04/14/25 10:06 Allergies Allergy/AdvReac Type Severity Reaction Status Date / Time No Known Allergies Allergy Verified 04/14/25 09:59 Home Medications ?Medication ?Instructions ?Recorded ?Confirmed ?Type meloxicam 15 mg tablet 15 mg PO DAILY #1 tablet 12/09/24 04/14/25 Rx cholecalciferol (vitamin D3) 1,250 1,250 mcg PO WEEKLY #8 caps 02/08/25 04/14/25 Rx mcg (50,000 unit) capsule lisdexamfetamine 30 mg capsule 30 mg PO DAILY #30 caps 03/25/25 04/14/25 Rx (Vyvanse) Laboratory Tests 04/14/25 10:06 POC Urine HCG, Qual Negative (Negative) Patient hx anesthesia problems: none Family hx anesthesia problems: none Results Review: All pre-operative results and documents have been reviewed as part of the pre- operative evaluation. [facility] Past Medical History Medical History Joint swelling BMI 29.0-29.9,adult BMI 28.0-28.9,adult Screening, lipid Skipped heart beats Well adult exam History of appendicitis Family History Family History Father Hypertension Mother Osteopenia Sibling Rheumatoid arthritis Social History Social History Smoking status: Never smoker Second hand tobacco smoke exposure: No Alcohol intake: current Drinks per week: 2 Substance use: never Substance use type: does not use Do You Feel Safe in your Home?: Yes Lack of Transportation: No Lack of Food: Never True Current Housing: I Have Housing Concerned About Future Housing: No Difficulty Paying Gas/Electric Bills: No Difficulty Paying for Meds: No Currently Unemployed: No Education: Master's Degree or Higher Living arrangements: with family Occupation/Education: occupation 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 Informed Consent: The patient's anesthetic plan and its attendant risks and benefits were discussed with the patient/family/POA. Questions were solicited and answers provided to the satisfaction of the patient/family/POA.
--- NOTE | 2025-04-14 10:16 | SUR.PREOP ---
DR HASSAN MADE AWARE OF BLOOD PRESSURE 140/104 AND 152/105, DR LOZANO PT, NO NEW ORDERS.
--- NOTE | 2025-04-14 10:43 | PM.HPGS ---
History of Present Illness History of Present Illness Consent: Risks, benefits, and alternatives have been discussed and questions answered. Patient agrees to proceed with procedure. Chief complaint: Screening Narrative: Monalisa Ceron is a 45 year old female here for first screening colonoscopy Review of Systems Review of Systems: All systems reviewed & are unremarkable except as noted in HPI and below PMFSH Past Medical History Medical History Joint swelling BMI 29.0-29.9,adult BMI 28.0-28.9,adult Screening, lipid Skipped heart beats Well adult exam History of appendicitis Family History Family History Father Hypertension Mother Osteopenia Sibling Rheumatoid arthritis Social History Social History Smoking status: Never smoker Second hand tobacco smoke exposure: No Alcohol intake: current Drinks per week: 2 Substance use: never Substance use type: does not use Do You Feel Safe in your Home?: Yes Lack of Transportation: No Lack of Food: Never True Current Housing: I Have Housing Concerned About Future Housing: No Difficulty Paying Gas/Electric Bills: No Difficulty Paying for Meds: No Currently Unemployed: No Education: Master's Degree or Higher Living arrangements: with family Occupation/Education: occupation 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[employer] Gender identity (if verbalized by the patient): Female Spiritual care concerns: No Meds Home Medications and Allergies Home Medications ?Medication ?Instructions ?Recorded ?Confirmed ?Type meloxicam 15 mg tablet 15 mg PO DAILY #1 tablet 12/09/24 04/14/25 Rx cholecalciferol (vitamin D3) 1,250 1,250 mcg PO WEEKLY #8 caps 02/08/25 04/14/25 Rx mcg (50,000 unit) capsule lisdexamfetamine 30 mg capsule 30 mg PO DAILY #30 caps 03/25/25 04/14/25 Rx (Vyvanse) Allergies Allergy/AdvReac Type Severity Reaction Status Date / Time No Known Allergies Allergy Verified 04/14/25 09:59 Vital Signs Vital Signs - 24 hr 04/14/25 10:06 Temperature 98.1 F Pulse Rate 98 Respiratory Rate 18 Blood Pressure 140/104 H Pulse Oximetry 98 Oxygen Delivery Room Air Exam Const: General: comfortable and no acute distress HENMT: Face/Nose/Sinus: Normal nares present Eyes: General: appearance normal, both eyes and all related structures Neck: Neck: no JVD Resp: Auscultation: clear to auscultation bilaterally Cardio: Rate: regular rate Rhythm: regular rhythm GI: Inspection: non-distended GI Palp: Yes Soft to palpation Skin: General skin exam: normal color Neuro: General: gait normal Speech: normal speech Extrem: General: normal to inspection Psych: Mental Status: mental status grossly normal Assessment and Plan Assessment and plan (1) Screen for colon cancer: Code(s): Z12.11 - Encounter for screening for malignant neoplasm of colon Status: Acute Assessment and Plan: colonoscopy
[2025-04-14 10:57] VITALS: BP 131/96; PULSE 95; RESP 20; O2SAT 96
[2025-04-14 11:07] VITALS: BP 131/94; PULSE 92; RESP 20; O2SAT 96
[2025-04-14 11:17] VITALS: BP 145/101; PULSE 90; RESP 20; O2SAT 95
== END 2025-04-14 11:24 | disposition home or self-care (01) ==
PROVIDERS: Anesthesiology; PCP Family Medicine; Referring Provider Nurse Practitioner Family; Visit Provider Internal Medicine Gastroenterology
PROC: 0DJD8ZZ Inspection of Lower Intestinal Tract, Via Natural or Artificial Opening Endoscopic (ICD-10-PCS; CPT 45378; principal; 2025-04-14 11:30)
DX: Z12.11 Encounter for screening for malignant neoplasm of colon (principal); K64.8 Other hemorrhoids
CPT/HCPCS: 45378; J2003; J2704; J7120

== ENCOUNTER 2025-04-20 13:57 | Outpatient (CLI) | payer OTHER, SELFPAY ==
--- NOTE | ~2025-04-20 | XR_ITS ---
EXAM/ PROCEDURE: XR knee RT min 4V - 04/20/2025 14:10 CDT HISTORY: 45 years old Female with M25.561 - Pain in right knee X2WKS, NO KNOWN INJURY COMPARISON: None available TECHNIQUE: 6 view(s) FINDINGS/ IMPRESSION: There are no fractures or dislocations.Joint spaces are within normal limits Reviewed, dictated and finalized at location A.
== END 2025-04-20 13:58 | disposition home or self-care (01) ==
PROVIDERS: PCP Family Medicine; Visit Provider Nurse Practitioner Family
DX: M25.561 Pain in right knee (principal)
CPT/HCPCS: 73564

== ENCOUNTER 2025-04-27 11:29 | Outpatient (CLI) | payer OTHER, SELFPAY ==
--- NOTE | ~2025-04-27 | US_ITS ---
US soft tissue LE RT Ordering provider: MELISSA Hutson History: . M25.561 - Pain in right knee . TECHNIQUE: Ultrasound evaluation of the area of concern is done. Comparison: None. FINDINGS/impression: No definite abnormality seen. Reviewed, dictated and finalized at location A.
== END 2025-04-27 11:30 | disposition home or self-care (01) ==
LOC: MICIMG 11:31
PROVIDERS: PCP Family Medicine; Visit Provider Nurse Practitioner Family
DX: M25.561 Pain in right knee (principal)
CPT/HCPCS: 76882

== ENCOUNTER 2025-05-26 15:47 | Outpatient (CLI) | payer OTHER, SELFPAY ==
--- NOTE | ~2025-05-26 | MR_ITS ---
MRI of the right knee Clinical history: Pain Technique: Coronal proton density and proton density-weighted images, sagittal proton-density and T2 fat-sat images, and axial proton-density fat-saturated images were acquired. Findings: Anterior and posterior cruciate ligaments are intact. Medial collateral ligament and the la teral collateral ligament complex are intact. Popliteus tendon is intact. Radial tear present at the posterior root of the medial meniscus. Lateral meniscus is intact. There is diffuse mild to moderate chondromalacia patella. There is extensive high-grade chondromalaci a of the medial femoral condyle and at the medial joint line. Articular cartilage in the lateral comp artment is relatively well-preserved. There are minimal tricompartmental osteophytes. Extensor mechanism is intact. There is minimal joint effusion. No See's cyst. Impression: Radial tear at the posterior root of the medial meniscus. Mild to moderate degenerative change, as above. Reviewed, dictated and finalized at [facility]. Impression: Radial tear at the posterior root of the medial meniscus. Mild to moderate degenerative change, as above.
== END 2025-05-26 15:48 | disposition home or self-care (01) ==
PROVIDERS: PCP Family Medicine; Visit Provider Nurse Practitioner Family
DX: S83.241A Other tear of medial meniscus, current injury, right knee, initial encounter (principal); X58.XXXA Exposure to other specified factors, initial encounter; M17.11 Unilateral primary osteoarthritis, right knee
CPT/HCPCS: 73721